=== PATIENT | female | born 1985 | race Two or more races ===

== ENCOUNTER 2017-01-18 22:26 | Emergency (ER) | payer MEDICAID ==
[~2017-01-18] VITALS: Ht 172.7 cm; Wt 107.0 kg
[2017-01-18] MEDS ORDERED: HYDROmorphone HCL 2 MG/ML VL IV ONE (23:15)
[2017-01-18] MEDS ORDERED: ETOMIDATE (2MG/ML) 20ML VIAL IV ONE (23:58)
[2017-01-19] MEDS ORDERED: ONDANSETRON HCL 4 MG/2 ML VIAL ONE (00:15)
[2017-01-19] MEDS ORDERED: ETOMIDATE (2MG/ML) 20ML VIAL IV ONE (00:15)
[2017-01-19 00:17] VITALS: BP 142/90
[2017-01-19] MEDS ORDERED: ONDANSETRON HCL 4 MG/2 ML VIAL IV ONE (00:45)
[2017-01-19] MEDS ORDERED: PROMETHAZINE HCL 25 MG/ML 1ML IV ONE (01:15)
== END 2017-01-19 01:57 | disposition home or self-care (01) ==
LOC: ER 22:26
DX: S43.004A Unspecified dislocation of right shoulder joint, initial encounter (principal); X50.9XXA Other and unspecified overexertion or strenuous movements or postures, initial encounter; Y93.89 Activity, other specified; Y92.89 Other specified places as the place of occurrence of the external cause; Y99.8 Other external cause status
CPT/HCPCS: 23650; 73020; 73030; 96374; 96375; 99152; 99285; J1170; J2405; J2550